=== PATIENT | female | born 1975 | race Caucasian/White ===

== ENCOUNTER → 2019-04-15 08:14 | Outpatient (CLI) | payer OTHER, SELFPAY ==
--- NOTE | 2019-04-15 | DI.US.S_ITS ---
ULTRASOUND OF LEFT BREAST: 04/15/2019 CLINICAL: Palpable left breast lump. Comparison is made to exam dated: 04/15/2019 [facility]. Color flow and real-time ultrasound of the left breast were performed. Cancino scale images of the real-time examination were reviewed. There is 1.3 cm x 1.5 cm x 1 cm wider than tall oval mass with a circumscribed margin in the left breast at 1 o'clock anterior depth 2 cm from the nipple with the long axis perpendicular to the skin. This oval mass displays posterior acoustic enhancement. This correlates as palpated and with area of clinical concern. There are some internal calcifications. Color flow imaging demonstrates that there is no vascularity present. IMPRESSION: PROBABLY BENIGN The 1.3 cm x 1.5 cm x 1 cm wider than tall oval mass in the left breast most likely is a fibroadenoma and is probably benign. A follow-up left mammogram and an ultrasound in 6 months is recommended to demonstrate stability. This exam was interpreted at Station ID: [id number]. Electronically Signed By: Perico allison/:04/15/2019 09:48:59 letter sent: Followup Recommended Ultrasound BI-RADS: 3 Probably benign
--- NOTE | 2019-04-15 | DI.MG.S_ITS ---
BILATERAL DIGITAL DIAGNOSTIC MAMMOGRAM 3D/2D: 04/15/2019 CLINICAL: Baseline exam. Left breast lump. No prior exams were available for comparison. The tissue of both breasts is extremely dense, which lowers the sensitivity of mammography. There are benign coarse calcifications in both breasts. No significant masses, calcifications, or other findings are seen in either breast. IMPRESSION: INCOMPLETE: NEEDS ADDITIONAL IMAGING EVALUATION There is no abnormality seen in the left breast to correspond with the area of clinical concern, palpable abnormality, and pain in the upper outer quadrant. However, further evaluation with sonogram is recommended which is scheduled to immediately follow this examination. This exam was interpreted at Station ID: [id number]. NOTE: For mammograms, a report in lay terms will be sent to the patient. Approximately 15% of breast malignancies will not be visualized mammographically. In the management of a palpable breast mass, a negative mammogram must not discourage biopsy of a clinically suspicious lesion. Electronically Signed By: Perico Abreu M.D. aty/:04/15/2019 09:45:44 ACR BI-RADS Category 0: Incomplete [id number]
== END ==
PROVIDERS: PCP Nurse Practitioner Family; Visit Provider Nurse Practitioner Family
DX: R92.8 Other abnormal and inconclusive findings on diagnostic imaging of breast (principal); R92.1 Mammographic calcification found on diagnostic imaging of breast; N63.21 Unspecified lump in the left breast, upper outer quadrant; N64.4 Mastodynia
CPT/HCPCS: 76642; 77066; G0279

== ENCOUNTER → 2019-04-29 08:15 | Outpatient (CLI) | payer OTHER, SELFPAY ==
--- NOTE | 2019-04-29 | DI.US.S_ITS ---
PROCEDURE: US SOFT TISSUE HEAD AND NECK INDICATIONS: LUMP IN NECK TECHNIQUE: Real-time scanning was performed of the neck region of interest, with image documentation. COMPARISON: None. FINDINGS: Scanning is performed at the site of the palpable mass within the right anterior neck. At this site, there is a solid nonvascular mass measures 5.6 x 1.3 x 2.3 cm. This is seen anterior to the common carotid artery. This is seen within the subcutaneous fat and demonstrates an echotexture similar to the surrounding subcutaneous fat. IMPRESSION: A likely lipoma is seen at the area of clinical concern within the right neck. However, differential diagnosis includes a pathologic lymph node. Given the age of the patient, please consider a dedicated soft tissue neck protocol CT with IV contrast for further evaluation. Dictated by: Harish Birmingham M.D. on 04/29/2019 at 9:08 Approved by: Harish Birmingham M.D. on 04/29/2019 at 9:10
== END ==
PROVIDERS: PCP Nurse Practitioner Family; Visit Provider Nurse Practitioner Family
DX: R22.1 Localized swelling, mass and lump, neck (principal)
CPT/HCPCS: 76536

== ENCOUNTER → 2019-05-27 11:45 | Outpatient (CLI) | payer OTHER, SELFPAY ==
--- NOTE | 2019-05-27 12:02 | DI.CT.S_ITS ---
PROCEDURE: CT SOFT TISSUE NECK W CON INDICATIONS: lipomas vs. other etiology TECHNIQUE: After the administration of intravenous contrast, 3.0 mm axial sections acquired from the sella to the aortic arch. Additional oblique axial 3.0 mm sections acquired through the pharynx. 3 mm thick coronal and sagittal reformats were generated. For radiation dose reduction, the following was used: automated exposure control. COMPARISON: [facility], , US SOFT TISSUE HEAD AND NECK, 04/29/2019, 8:46. FINDINGS: Image quality: Excellent. Lymph nodes: No enlarged lymph nodes seen throughout the neck. Vessels: Visualized vasculature appears patent. Neck spaces: The oropharynx, nasopharynx, and pharynx demonstrate no mucosal lesions. The vocal cords, false vocal cords, pyriform sinuses, epiglottis, vallecula, and tongue base all appear normal. Extramucosal spaces appear unremarkable. Glands: The parotid and submandibular glands appear normal. Thyroid gland demonstrates a well-circumscribed, oval 6 mm hypodense nodule. Miscellaneous: Visualized brain and orbits appear normal. Lung apices appear clear. Superficial soft tissues appear normal. A BB skin marker is noted over the right lower neck just medial and superior to the sternoclavicular joint. This localizes the palpable area of concern as well as the probable lipoma seen in this region on comparison sonogram. At this site, there is a circumscribed, oval fat attenuation hypodense lesion identified in the superficial soft tissues deep to the skin but superficial to the underlying neck musculature and larger vessels. It displaces vessels around it. No evidence for internal vascularity or internal enhancing solid components. This lesion measures approximately 1.3 x 2.3 cm in transverse dimension and approximately 3.9 cm in long axis dimension. Bones: No suspicious bony lesions. Because of thickening of the bilateral maxillary sinuses. Remainder of the paranasal sinuses appear clear. Mastoid air cells are well-aerated. IMPRESSION: #1. Corresponding to the palpable area of concern and sonographic lesion seen on comparison study dated 04/21/19, there is a superficial fat attenuation mass that appears be well-circumscribed without aggressive features noted just medial and superior to the level of the right sternoclavicular joint. This measures approximately 1.3 x 2.3 cm in transverse dimension and 3.9 cm in craniocaudal dimension. 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 Recommend clinical followup with continued clinical surveillance. Future imaging can be considered if any clinically suspicious findings develop. #2. Bilateral maxillary sinus disease. Dictated by: Perico Abreu M.D. on 05/27/2019 at 17:50 Approved by: Perico Abreu M.D. on 05/27/2019 at 18:03
== END ==
PROVIDERS: PCP Family Medicine; Visit Provider Nurse Practitioner Family
DX: R22.1 Localized swelling, mass and lump, neck (principal); J32.0 Chronic maxillary sinusitis; E04.1 Nontoxic single thyroid nodule
CPT/HCPCS: 70491